=== PATIENT | male | born 1990 | race Caucasian/White ===

== ENCOUNTER 2021-10-20 22:55 | Emergency (ER) | payer OTHER ==
[2021-10-21] MEDS ORDERED: MIRALAX 238GM238 GM PO (01:47)
[2021-10-21] MEDS ORDERED: COLACE100 MG PO (01:47)
[2021-10-21] MEDS ORDERED: NORCO 5-325 TA1 EACH PO (01:48)
[2021-10-21] MEDS ORDERED: PREPARATION H O28 GM PR (01:51)
== END 2021-10-21 02:45 | disposition home or self-care (01) ==
LOC: FER 22:55
DX: K64.9 Unspecified hemorrhoids (principal); F17.290 Nicotine dependence, other tobacco product, uncomplicated; Z88.0 Allergy status to penicillin
CPT/HCPCS: 99282